=== PATIENT | female | born 1950 | race Caucasian/White ===

== ENCOUNTER → 2021-11-04 | Outpatient (CLI) | payer MEDICARE, BC | LOC: WOUNDCARE 13:46 | PROVIDERS: ATTEND Family Medicine | DX: L98.492 Non-pressure chronic ulcer of skin of other sites with fat layer exposed (principal); E11.622 Type 2 diabetes mellitus with other skin ulcer; B37.3 Candidiasis of vulva and vagina | CPT/HCPCS: 11105; G0463 ==

== ENCOUNTER → 2021-11-04 | Outpatient (CLI) | payer MEDICARE, BC ==
[2021-11-04 15:46] LABS: BASOPHILS % (AUTO) 1 % (0-10); EOSINOPHILS # (AUTO) 0.1 10^3/uL (0.0-0.3); EOSINOPHILS % (AUTO) 1 % (0-10); HEMATOCRIT 35 % (35-52); HEMOGLOBIN 11.3 g/dL (11.5-16.0); LYMPHOCYTES # (AUTO) 1.5 X 10^3 (1.0-4.0); LYMPHOCYTES % (AUTO) 21 % (12-44); MEAN CORPUSCULAR HEMOGLOBIN 31 pg (25-34); MEAN CORPUSCULAR HGB CONC 33 g/dL (32-36); MEAN CORPUSCULAR VOLUME 95 fL (80-99); MEAN PLATELET VOLUME 11.1 fL (9.0-12.2); MONOCYTES # (AUTO) 0.7 X 10^3 (0.0-1.0); MONOCYTES % (AUTO) 9 % (0-12); NEUTROPHILS # (AUTO) 4.9 X 10^3 (1.8-7.8); NEUTROPHILS % (AUTO) 68 % (42-75); PLATELET COUNT 223 10^3/uL (130-400); WHITE BLOOD COUNT 7.3 10^3/uL (4.3-11.0)
[2021-11-04 16:06] LABS: ALBUMIN 4.5 GM/DL (3.2-4.5); BILIRUBIN,TOTAL 0.3 MG/DL (0.1-1.0); CREATININE SERUM 1.05 MG/DL (0.60-1.30); POTASSIUM 3.9 MMOL/L (3.6-5.0)
[2021-11-04 16:08] LABS: ERYTHROCYTE SEDIMENTATION RATE 52 MM/HR (0-30)
== END ==
LOC: LAB 15:21
PROVIDERS: ATTEND Family Medicine
DX: L98.492 Non-pressure chronic ulcer of skin of other sites with fat layer exposed (principal); E11.622 Type 2 diabetes mellitus with other skin ulcer; B37.3 Candidiasis of vulva and vagina
CPT/HCPCS: 36415; 80053; 85025; 85652; 86038; 86141

== ENCOUNTER → 2021-12-09 | Outpatient (CLI) | payer MEDICARE, BC | LOC: WOUNDCARE 12:39 | PROVIDERS: ATTEND Family Medicine | DX: L98.492 Non-pressure chronic ulcer of skin of other sites with fat layer exposed (principal); E11.622 Type 2 diabetes mellitus with other skin ulcer; E11.52 Type 2 diabetes mellitus with diabetic peripheral angiopathy with gangrene; B37.3 Candidiasis of vulva and vagina | CPT/HCPCS: 99213 ==

== ENCOUNTER → 2021-12-16 | Outpatient (CLI) | payer MEDICARE, BC | LOC: WOUNDCARE 10:14 | PROVIDERS: ATTEND Family Medicine | DX: L98.492 Non-pressure chronic ulcer of skin of other sites with fat layer exposed (principal); E11.622 Type 2 diabetes mellitus with other skin ulcer; L40.8 Other psoriasis; E11.52 Type 2 diabetes mellitus with diabetic peripheral angiopathy with gangrene | CPT/HCPCS: 99213 ==

== ENCOUNTER → 2021-12-23 | Outpatient (CLI) | payer MEDICARE, BC | LOC: WOUNDCARE 11:16 | PROVIDERS: ATTEND Family Medicine | DX: L98.492 Non-pressure chronic ulcer of skin of other sites with fat layer exposed (principal); E11.622 Type 2 diabetes mellitus with other skin ulcer; L40.8 Other psoriasis; E11.52 Type 2 diabetes mellitus with diabetic peripheral angiopathy with gangrene | CPT/HCPCS: 99213 ==

== ENCOUNTER → 2022-01-06 | Outpatient (CLI) | payer MEDICARE, BC | LOC: WOUNDCARE 11:21 | PROVIDERS: ATTEND Family Medicine | DX: E11.622 Type 2 diabetes mellitus with other skin ulcer (principal); L98.492 Non-pressure chronic ulcer of skin of other sites with fat layer exposed; L40.8 Other psoriasis | CPT/HCPCS: 99213 ==

== ENCOUNTER → 2022-01-27 | Outpatient (CLI) | payer MEDICARE, BC | LOC: WOUNDCARE 11:11 | PROVIDERS: ATTEND Family Medicine | DX: E11.622 Type 2 diabetes mellitus with other skin ulcer (principal); L98.492 Non-pressure chronic ulcer of skin of other sites with fat layer exposed; L40.8 Other psoriasis | CPT/HCPCS: 99213 ==